=== PATIENT | female | born 1995 ===

== ENCOUNTER 2017-08-20 06:18 | Inpatient (IN) | payer BC ==
[2017-08-07 14:51] VITALS: BMI 28.8
[2017-08-20 07:08] LABS: BASO % 0.5 % (0.0-2.0); EOS # 0.1 K/uL (0.0-0.7); LYMPH # 2.6 K/uL (1.0-4.3); LYMPH % 35.8 % (20.0-40.0); MEAN CELL VOLUME 83.7 fl (81.0-99.0); MEAN CORPUSCULAR HEMOGLOBIN 28.2 pg (27.0-31.0); MEAN CORPUSCULAR HGB CONC 33.7 g/dL (33.0-37.0); MEAN PLATELET VOLUME 7.6 fl (7.2-11.7); MONO # 0.5 K/uL (0.0-0.8); MONO % 6.9 % (0.0-10.0); NEUT % 55.8 % (50.0-75.0); NRBC % 0.1 % (0.0-0.0); RBC 4.6 Mil/uL (3.80-5.20); RED CELL DISTRIBUTION WIDTH 13.2 % (11.5-14.5); WHITE BLOOD COUNT 7.2 K/uL (4.8-10.8)
[2017-08-20] MEDS ORDERED: Lactated Ringer's 1,000 ML IV ONE ×2 (07:10→09:00)
[2017-08-20] MEDS ORDERED: ePHEDrine 50 mg/ml Inj ONE (07:22)
[2017-08-20] MEDS ORDERED: Propofol 10 mg/ml Inj (20 ML) ONE (07:22)
[2017-08-20] MEDS ORDERED: Rocuronium 10 mg/ml (5 ml) ONE (07:22)
[2017-08-20] MEDS ORDERED: Lidocaine 4% (Laryng-O-Jet) Kit MM ONE (07:22)
[2017-08-20] MEDS ORDERED: Midazolam 2 MG/2 ML VIAL ONE (07:22)
[2017-08-20] MEDS ORDERED: Succinylcholine 200 mg/10 ml Inj IV ONE (07:22)
[2017-08-20] MEDS ORDERED: Bupivacaine 0.5% Inj(30mL) ONE (07:24)
[2017-08-20] MEDS ORDERED: Neostigmine Methylsulfate 3mg/3ml Syringe IV ONE (07:29)
[2017-08-20] MEDS ORDERED: Phenylephrine 10 mg/ml Inj ONE (07:30)
[2017-08-20] MEDS: Vasopressin 20 Units/ml Inj ONE ×2 (09:24→09:53)
[2017-08-20] MEDS: Methylene Blue 10 mg/mL(10ml) IV ONE ×2 (09:24→09:45)
[2017-08-20] MEDS ORDERED: Desflurane Inhalation Anesthetic Liq (240 ml) ONE (09:59)
[2017-08-20] MEDS ORDERED: HEMOSTATIC MATRIX 10 ML DIS.NEEDLE TOP ONE (11:10)
[2017-08-20] MEDS ORDERED: APROTININ/FIBRINOGEN(TISSEEL) ONE (12:10)
[2017-08-20] MEDS ORDERED: Lactated Ringer's 1,000 ML IV SCH ×2 (13:00→14:45)
[2017-08-20] MEDS ORDERED: HYDROmorphone 0.5 mg/0.5 ml ISec ONE ×3 (13:01→16:49)
[2017-08-20] MEDS ORDERED: HYDROmorphone 0.5 mg/0.5 ml ISec IVP ONE (16:30)
--- NOTE | 2017-08-20 16:52 | PCM.SURG1 ---
Surgeon's Initial Post Op Note - Surgeon's Notes Surgeon: Alexandre graham md Non Morse Intercept Technician: nicole major Type of Anesthesia: General Endo Pre-Operative Diagnosis: Chronic pelvic pain. Possible endometriosis. Prior Essure procedure Operative Findings: Intrapelvic intra-abdominal adhesions. Foreign body in the form of williams adherent to the posterior cul-de-sac to the peritoneum likely from prior bariatric surgery. Essure in situ bilaterally. Chromotubation showing patent fallopian tubes bilaterally. Left ovarian cyst complex excised Post-Operative Diagnosis: Chronic pelvic pain. Endometriosis. Prior Essure procedure Operation Performed: Robotic excision of endometriosis as well as anterior lysis and excision of foreign body within posterior cul-de-sac. Robotic tubal uterine ovarian anastomosis following the removal of essure coils. Chromotubation. Diagnostic cystoscopy Specimen/Specimens Removed: Essure coils. Endometriosis. Foreign body from cul -de-sac Estimated Blood Loss: EBL {In ML}: 20 Blood Products Given: N/A Drains Used: No Drains Post-Op Condition: Good Date of Surgery/Procedure: 08/20/17 Time of Surgery/Procedure: 16:52
--- NOTE | 2017-08-20 16:54 | PCM.OP ---
Operative Report - Operative Report Date of Surgery/Procedure: 08/20/17 Time of Surgery/Procedure: 16:53 Surgeon: patrice graham md Maintenance Specialist: nicole major Anesthesia/Sedation: Gen. with ET tube Pre-Operative Diagnosis: Chronic pelvic pain. Endometriosis. Prior Essure procedure Post-Operative Diagnosis: Chronic pelvic pain. Endometriosis. Prior Essure procedure Indication for Surgery: Patient reports worsening pelvic pain following Essure procedure. Patient reports severe dyspareunia as well as pain with menses. Operative Findings: Patient with extensive intra-abdominal and intrapelvic adhesions as well as endometriosis on posterior cul-de-sac. Patient with foreign body within the cul-de-sac, metal clips attached to the peritoneum. Essure coils removed, and fallopian tubes reanastomosed tubal uterine fashion. Chromotubation completed showing patent fallopian tubes following the repair. Diagnostic cystoscopy showing normal bladder anatomy, both ureters effluxing urine freely. Procedure/Operation Description: Robotic excision of endometriosis as well as excision of the Essure coils bilaterally. Enterolysis lysis of adhesions. Excision of foreign body from posterior cul-de-sac. Tubal Uterine ovarian anastomosis. Diagnostic cystoscopy. Detailed operative report. This is a 22 years old female with chronic pelvic pain, dyspareunia since completion of an essure procedure and strong possibility of endometriosis. This patient described this pain as debilitating and limiting her daily activity and adversely affecting her quality of life. Following a complete work up at the office which included a U/S, vaginal cultures, hematology and chemistry, decision was made to proceed with a robotic assisted excision of endometriosis, excision of sterilization metallic coils, possible lysis of adhesions and chromotubation. After proper consent was obtained from the patient, she was taken to the operating room, placed in lithotomy position, her legs placed in adjustable stirrups. Careful attention was placed to avoid hyperflexion or hyper-rotation of the lower extremities. Exam under anesthesia revealed a non-mobile bulky uterus, with adnexal fullness bilaterally, and nodularity appreciated the posterior fornix. She was prepped and draped for a robotic excision of endometriosis. Mazariegos catheter was placed in sterile condition. Weighted speculum was placed in the vagina, the anterior lip of the cervix was grasped with a tenaculum, and the cervix was dilated to allow a V- Care uterine manipulator insertion into the endometrial cavity. While tenting the abdominal wall, a Veres needle was inserted through the umbilicus and a pneumoperitoneum was obtained. A 1cm incision was made approx. at the umbilical fold and a trocar and sleeve were introduced. The patient was placed in Trendelenburg position. A robotic camera was introduced and an initial survey of the pelvic cavity revealed extensive peritoneal adhesions, bowel loops adherent to the posterior cul-de-sac. Endometriosis along the posterior cul-de-sac peritoneum as well as the right and left uterosacral ligaments. Multiple metallic clips were adherent to the peritoneum in the posterior cul-de- sac creating distorted and adherent peritoneum possibly leading to peritoneal adhesions. Uterus appeared normal with moderate adhesions along the fallopian tubes. The contour of the sterilization coils could be seen at the cornua on each side. Three robotic ports were used for the procedure and were inserted through 5 mm incisions. The first port was inserted on the right side approximately 5 cm cephalad to the superior iliac crest; the second port was placed in a mirror image location on the contralateral side the third port was placed on the patient right side approx. 5 cm superior to the iliac crest. An assistant toddler teacher port was placed through an 8 mm incision in the suprapubic region, 2 cm left lateral midline. Lateral side docking was achieved with the robot with no difficulty. A monopolar shear was inserted through the port on the right side and a PK was inserted through the port on the left side. Both ureters were visualized with peristalsis prior to the excision and ablation of endometriosis. Meticulous lysis of peritoneal adhesions and ablation of endometriosis was accomplished with the roni and the PK. A long and meticulous process of enterolysis was necessary to access the posterior cul-de- sac and completed the excision of the endometriosis. In addition, meticulous and slow dissection the excision of multiple metallic clips adherent to the posterior cul-de-sac possibly creating a reaction leading to peritoneal adhesions. Attention was then turned to the excision of the metal coils inserted into the fallopian tube sterilization. The proximal end of the fallopian tube on the right was excised at the isthmus level, at the edge of the coil as noted by the indentation of the coil. Adequate fallopian tube length was noted from that point all the way to the fimbrial end. In a slow and meticulous fashion the distal and along the cornua was dissected, and the portion of the tube within the myometrium was dissected thereby removing the tube portion around the coil completely. The same process was completed on the contralateral side. At this point the segment of fallopian tubes along with the titanium coils were removed labeled and sent to pathology. At this time chromotubation was completed showing us free spillage of dilute methylene blue solution from the cornua, as well as spillage from the fimbrial edge is to dilute methylene blue solution was introduced into the transected end. At this time the tubal uterine reanastomosis portion was approached. Utilizing 5-0 Vicryl suture material, the mesosalpinx was reapproximated creating a bridge between the anastomosed edges of the tube to the uterus portion. This was completed in order to relieve any pressure and tension on the anastomosis end. 5-0 Monocryl suture was utilized to anastomose the transected end of the tube through the tunnel created within the myometrium leading into the endometrial cavity. Four-quadrant of the tube was suture ligated to the endometrial edge of the endometrial cavity pooling the transected end of the tube into the myometrial canal created earlier. Multiple interrupted sutures utilizing 5-0 Monocryl sutures in interrupted fashion was used to accomplish a tight closure and watertight anastomosis of the fallopian tube. Lastly a 5-0 Monocryl suture was utilized to suture the serosal end of the fallopian tube serosal and the uterus. Similar closure and tubal uterine anastomosis was accomplished on both sides of the uterus both tubes. Chromotubation completed again of the procedure showed spillage of methylene blue solution into the fimbrial edge of both tubes. The abdomen was throughout irrigated and cleared of clots and debris. The ureters were once again visualized with peristalsis and excellent hemostasis noted throughout. Flow-seal and inter-seed to prevent further adhesions placed over the excision / ablation beds. All instruments were removed under direct visualization; the robotic arms were undocked. Pneumoperitoneum was reduced. The camera port was closed at a fascial layer with a 2-0 vicryl. All skin incisions were closed with a 4-0 monocryl in a subcuticular fashion. The Vcare was removed and Mazariegos remained to be removed the next morning. Prior to incision, patient received prophylactic antibiotics (Ancef), prior to closure, sponge lap and needle count were correct times two. Patient was taken to recovery room under stable condition. Estimated Blood Loss: 20 Blood Replaced: None Sponge/Instrument Count: Count correct 2 Drains: None Complications: none Specimen: Endometriosis, foreign body metal clips, essure coils Discharge & Condition: Patient discharged home postoperative day #1 in stable condition
[2017-08-20] MEDS ORDERED: ceFAZolin 1 GM in Sodium Chloride 0.9% 100 ML IVPB SCH (17:00)
[2017-08-21] MEDS: Oxycodone/Acetaminophen 5/325 mg Tab PO PRN ×2 (06:27→13:11)
[2017-08-21 07:41] LABS: HEMOGLOBIN 11.3 g/dL (12.0-16.0); MEAN CELL VOLUME 83.4 fl (81.0-99.0); MEAN CORPUSCULAR HEMOGLOBIN 28.3 pg (27.0-31.0); RBC 3.98 Mil/uL (3.80-5.20); RED CELL DISTRIBUTION WIDTH 13.2 % (11.5-14.5); WHITE BLOOD COUNT 11.9 K/uL (4.8-10.8)
[2017-08-21 08:01] LABS: BLOOD UREA NITROGEN 8 mg/dl (7-17); CALCIUM 8.8 mg/dL (8.4-10.2); GFR AFRICAN-AMERICAN > 60; GFR NON-AFRICAN AMERICAN > 60
[2017-08-21 08:53] VITALS: BP 105/63; RESP 20; O2SAT 99
[2017-08-21 12:36] VITALS: PULSE 67; TEMP 99.7
--- NOTE | 2017-08-21 13:40 | CP.PCM.PN ---
Subjective - Date & Time of Evaluation Date of Evaluation: 08/21/17 Time of Evaluation: 14:00 - Subjective Subjective: Patient comfortable, good appetite. +void, +passing gas. Pain controlled with percocet. Denies CP/aSOB/dizziness. [place] MANAGED CARE PROVIDER patient report reviewed last CDS 09/2016. Patient counseled on the risks of addiction, physical or psychological dependence, and overdose associated with opioid drugs and the danger of taking opioid drugs with alcohol and other central nervous system depressants, and cautioned patient on storage and disposal. Objective - Vital Signs/Intake and Output Vital Signs (last 24 hours): Temp Pulse Resp BP Pulse Ox 99.7 F H 67 20 105/63 99 08/21/17 12:34 08/21/17 12:34 08/21/17 12:34 08/21/17 08:30 08/21/17 12:34 Intake and Output: 08/21/17 08/21/17 06:59 18:59 Intake Total 1360 Output Total 1500 Balance -140 - Medications Medications: Current Medications Hydromorphone HCl (Dilaudid) 1 mg IVP Q4 PRN PRN Reason: Pain, severe (8-10) Last Admin: 08/20/17 20:54 Dose: 1 mg Lactated Ringer's (Lactated Ringer's) 1,000 mls @ 125 mls/hr IV .Q8H KENNETH Lactated Ringer's (Lactated Ringer's) 1,000 mls @ 75 mls/hr IV .[id number] KENNETH Last Admin: 08/21/17 00:19 Dose: 75 mls/hr Ondansetron HCl (Zofran Inj) 4 mg IVP Q6 PRN PRN Reason: Nausea/Vomiting Oxycodone/Acetaminophen (Percocet 5/325 Mg Tab) 1 tab PO Q6 PRN PRN Reason: Pain, moderate (4-7) Stop: 08/23/17 14:00 Last Admin: 08/21/17 13:11 Dose: 1 tab - Labs Labs: 08/21/17 07:25 08/21/17 07:25 - GI/Abdominal Exam Additional comments: abd soft, min tenderness, no erythema, incisions dry Assessment and Plan (1) Endometriosis Assessment & Plan: d/c home today rx percocet f/u [address] Salazar d/w Dr. Salazar, agrees with above Status: Acute
== END 2017-08-21 14:15 | disposition home or self-care (01) | DRG 747 ==
LOC: H.OPSURG 06:18 → MERGE 13:57 → H.PEDS 13:57 → H.OPSURG 17:14
PROVIDERS: ADMIT Obstetrics & Gynecology; ATTEND Obstetrics & Gynecology
PROC: 0TJB8ZZ Inspection of Bladder, Via Natural or Artificial Opening Endoscopic (ICD-10-PCS; 2017-08-20)
PROC: 3E0 Administration, Physiological Systems and Anatomical Regions, Introduction (ICD-10-PCS; 2017-08-20)
PROC: 0UBF4ZZ Excision of Cul-de-sac, Percutaneous Endoscopic Approach (ICD-10-PCS; principal; 2017-08-20 07:45)
PROC: 0DNW4ZZ Release Peritoneum, Percutaneous Endoscopic Approach (ICD-10-PCS; 2017-08-20 07:45)
DX: N80.3 Endometriosis of pelvic peritoneum (principal); G89.29 Other chronic pain; N73.6 Female pelvic peritoneal adhesions (postinfective)